=== PATIENT | female | born 1955 | race Caucasian/White ===

== ENCOUNTER → 2023-11-10 08:19 | Outpatient (REF) | payer MEDICARE, OTHER, SELFPAY ==
[2023-11-10 09:40] LABS: % Basophils 0.6 % (0-2); % Eosinophils 2.5 % (0-6); % Immature Granulocytes 0.3 % (0-0.5); % Lymphocytes 15.7 % (20.5-51.1); % Monocytes 6.3 % (1.7-9.3); % Neutrophils 74.6 % (42.2-75.2); Absolute Eosinophils 0.2 10^3/uL (0-0.7); Absolute Monocytes 0.4 10^3/uL (0.1-0.6); Absolute Neutrophils 4.9 10^3/uL (1.4-6.5); Hematocrit 38.5 % (37.0-47.0); Mean Corp Hgb Conc. 33.8 g/dL (33.0-37.0); Mean Corpuscular Hgb 31.6 pg (27.0-31.0); Mean Corpuscular Volume 93.7 fL (81.0-99.0); Nucleated Red Blood Cells % 0 %; Platelet Count 193 10^3/uL (130-400); Red Blood Cell Count 4.11 10^6/uL (4.20-5.40); Red Cell Dist. Width 12.4 % (11.5-14.5); White Blood Cell Count 6.5 10^3/uL (4.8-10.8)
[2023-11-10 10:25] LABS: ALT (SGPT) 26 U/L (0-35); AST (SGOT) 41 U/L (14-36); Albumin 4.3 g/dl (3.5-5.0); Alkaline Phosphatase 84 U/L (38-126); Blood Urea Nitrogen 24 mg/dl (7-17); Calcium 9.8 mg/dl (8.4-10.2); Carbon Dioxide 27 mmol/L (22-30); Chloride 101 mmol/L (98-107); Glucose 88 mg/dl (70-99); HDL Cholesterol 99 mg/dl; LDL Cholesterol, Calculated 116 mg/dl; Potassium 4.1 mmol/L (3.5-5.1); Sodium 137 mmol/L (135-145); Total Bilirubin 0.5 mg/dl (0.2-1.3); Total Cholesterol 228 mg/dl (50-199); Total Protein 6.7 g/dl (6.3-8.2); Triglyceride 68 mg/dl (10-149); Very Low Density Lipoprotein 13 mg/dl (0-30); eGFR > 60.00
[2023-11-10 10:42] LABS: TSH Reflex To Free T4 2.05 uIU/ml (0.47-4.68)
== END ==
LOC: REG 08:19
PROVIDERS: ATTENDING PHYSICIAN Family Medicine
DX: R53.82 Chronic fatigue, unspecified (principal); I10 Essential (primary) hypertension
CPT/HCPCS: 36415; 80053; 80061; 84443; 85025